=== PATIENT | female | born 1955 | race Caucasian/White ===

== ENCOUNTER 2016-12-30 21:38 | Emergency (ER) | payer OTHER ==
[~2016-12-30] VITALS: Ht 172.7 cm; Wt 84.8 kg
[~2016-12-30 21:38] MED LIST: ALPR0.5T96 PO; LEVO25TA58 PO
[2016-12-30 21:51] VITALS: BP_SYST 120
[2016-12-30] MEDS ORDERED: FAMOTIDINE PF 20 MG/2 ML VIAL IVP ONE (22:45)
[2016-12-30] MEDS ORDERED: DEXAMETHASONE SOD PHOSPHATE 10 MG/ML VIAL IVP ONE (22:45)
[2016-12-30] MEDS ORDERED: DIPHENHYDRAMINE INJ 50 MG/ML VIAL IVP ONE (22:45)
[2016-12-30] MEDS ORDERED: NACL 0.9% 1,000 ML IV ONE (22:45)
[2016-12-30] MEDS ORDERED: EPINEPHrine 1 MG/ML AMP IM ONE (22:45)
[2016-12-31 01:13] VITALS: BP_SYST 132
== END 2016-12-31 00:58 | disposition home or self-care (01) ==
LOC: SED 21:38
DX: L50.9 Urticaria, unspecified (principal); F17.210 Nicotine dependence, cigarettes, uncomplicated; R06.00 Dyspnea, unspecified; E07.9 Disorder of thyroid, unspecified; Z71.6 Tobacco abuse counseling; Z88.8 Allergy status to other drugs, medicaments and biological substances; Z79.899 Other long term (current) drug therapy
CPT/HCPCS: 96361; 96372; 96374; 96375; 99284; J0171; J1100; J1200; J3490; J7030

== ENCOUNTER 2017-02-07 09:55 | Outpatient (CLI) | payer OTHER | END 2017-02-07 21:02 | disposition home or self-care (01) | LOC: SCT 09:55 | PROVIDERS: ATTEND Otolaryngology | DX: J32.3 Chronic sphenoidal sinusitis (principal) | CPT/HCPCS: 70486-TC ==

== ENCOUNTER 2019-10-19 19:21 | Emergency (ER) | payer OTHER ==
[~2019-10-19] VITALS: Ht 172.7 cm; Wt 83.9 kg
[2019-10-19 19:21] VITALS: BP_SYST 166
[~2019-10-19 19:21] MED LIST changes: +ALPR0.5T PO; -ALPR0.5T96 PO; +LEVO25TA2 PO; -LEVO25TA58 PO
--- NOTE | 2019-10-19 19:26 | NUR ---
Placed in room 07 . Placed on laborer/grade check, blood pressure machine and pulse oximeter. To gown for exam. Side rails up.
--- NOTE | 2019-10-19 19:28 | NUR ---
Patient arrived to the ED, A&Ox3 with c/o of pain to her left chest radiating to her arm since noon. Pt. is afebrile and denies n/v and other symptoms. VS within normal limits and pt. shows no signs of distress or pain. VSS. Will continue to monitor pt. at this time.
[2019-10-19] MEDS ORDERED: LEVO137T2 PO (19:40)
[2019-10-19] MEDS ORDERED: ROSU20TA2 PO (19:41)
[2019-10-19] MEDS ORDERED: ASPI-1153 PO (19:42)
[2019-10-19] MEDS ORDERED: SODI126M NS (19:43)
[2019-10-19] MEDS ORDERED: UBID100C45 PO (19:43)
[2019-10-19] MEDS ORDERED: ASPIRIN 81 MG TAB.CHEW PO ONE (19:45)
--- NOTE | 2019-10-19 19:45 | NUR ---
22G Angiocath placed to the right lateral wrist.
[2019-10-19 20:08] LABS: BASOPHILS % (AUTO) 0.5 % (0.0-2.0); EOSINOPHILS # (AUTO) 0.1 K/uL (0.0-0.4); EOSINOPHILS % (AUTO) 2.6 % (0.0-4.0); HEMATOCRIT 42.2 % (36-48); HEMOGLOBIN 14.3 g/dL (12.0-16.0); LYMPHOCYTES # (AUTO) 1.6 K/uL (1.0-5.5); LYMPHOCYTES % (AUTO) 29.1 % (20.5-51.5); MEAN CORPUSCULAR HEMOGLOBIN 31 pg (27-31); MEAN CORPUSCULAR HGB CONC 34 % (32-36); MEAN CORPUSCULAR VOLUME 93 fL (79.0-98.0); MONOCYTES # (AUTO) 0.7 K/uL (0.0-1.0); MONOCYTES % (AUTO) 13.1 % (1.7-9.3); NEUTROPHILS # (AUTO) 2.9 K/uL (1.8-7.7); NEUTROPHILS % (AUTO) 54.7 % (40.0-70.0); PLATELET COUNT (AUTO) 219 K/uL (130-430); RED BLOOD CELL COUNT(AUTO) 4.56 MIL/uL (4.2-6.2); RED CELL DISTRIBUTION WIDTH 13.1 % (9.0-15.0); WHITE BLOOD COUNT (AUTO) 5.4 K/uL (4.8-10.8)
[2019-10-19] MEDS ORDERED: hydrALAZINE HCL 20 MG/ML VIAL IVP ONE (20:15)
--- NOTE | 2019-10-19 20:21 | NUR ---
Hydralazine HCL 10mg vial IVP NOT GIVEN due to improvment in BP. aware.
[2019-10-19 20:26] LABS: CALCIUM 9.7 mg/dL (8.4-11.0); CREATININE 0.86 mg/dL (0.55-1.30); POTASSIUM 4.4 mmol/L (3.5-5.1)
[2019-10-19 20:30] LABS: PROTHROMBIN TIME 9.8 SECS (9.5-12.5)
[2019-10-19 20:33] LABS: ALBUMIN 3.5 g/dL (3.4-4.8); TOTAL BILIRUBIN 0.3 mg/dL (0.0-1.0)
--- NOTE | 2019-10-19 21:30 | NUR ---
Pt. resting at this time. VSS. Patient denies pain and does not appear in distress at this time. Will continue to monitor.
[2019-10-19] MEDS ORDERED: ACETAMINOPHEN 500 MG TABLET PO ONE (22:00)
--- NOTE | 2019-10-19 22:42 | NUR ---
Pt. medicated with 1000mg Tylenol for 7/10 pain in her chest and genralized aches throughout upper body. VSS. Will continue to monitor and assess pain.
--- NOTE | 2019-10-19 23:40 | NUR ---
Patient resting comfortably in bed and denies pain at this time. VSS. Will continue to monitor.
[2019-10-19 23:58] LABS: BILIRUBIN,URINE NEGATIVE (NEGATIVE); BLOOD, URINE 1+ (NEGATIVE); CLARITY/URINE CLEAR (CLEAR); COLOR,URINE YELLOW (YELLOW); GLUCOSE,URINE NEGATIVE (NEGATIVE); KETONES,URINE NEGATIVE (NEGATIVE); LEUKOCYTE ESTERASE ,URINE NEGATIVE (NEGATIVE); NITRITE, URINE NEGATIVE (NEGATIVE); PH,URINE 5.5 (5.0-8.0); PROTEIN URINE NEGATIVE (NEGATIVE); UROBILINOGEN,URINE 0.2 (0.2-1.0)
[2019-10-20 00:35] VITALS: BP_SYST 138
[2019-10-20 00:35] LABS: BACTERIA,URINE FEW /HPF (None Seen); WBC,URINE 0-3 /HPF (0-3)
--- NOTE | 2019-10-20 00:35 | NUR ---
Patient given written and verbal discharge instructions and verbalizes understanding. ER MD discussed with patient the results and treatment provided. Patient in stable condition. ID arm band removed. IV catheter removed intact and dressing applied, no active bleeding. Rx of Soma given. Patient educated on pain management and to follow up with PMD. Pain Scale 2/10. Opportunity for questions provided and answered. Medication side effect fact sheet provided.
== END 2019-10-20 00:35 | disposition home or self-care (01) ==
LOC: SED 19:21
DX: R07.89 Other chest pain (principal); E03.9 Hypothyroidism, unspecified; Z79.82 Long term (current) use of aspirin; Z79.899 Other long term (current) drug therapy
CPT/HCPCS: 36415; 71045; 80053; 81000-TC; 82550-TC; 83880; 84484; 85025; 85379; 85610-TC; 93005; 99284; J0360

== ENCOUNTER 2019-10-27 18:25 | Inpatient (IN) | payer OTHER, SELFPAY ==
[~2019-10-27] VITALS: Ht 170.2 cm; Wt 83.5 kg
[2019-10-27] MEDS: AZITHROMYCIN 500 MG in NS 250 ML IV SCH (01:00)
[~2019-10-27 18:25] MED LIST changes: +ASPI-1153 PO; +LEVO137T2 PO; -LEVO25TA2 PO; +ROSU20TA2 PO; +SODI126M NS; +UBID100C45 PO
[2019-10-27 18:43] VITALS: BP_SYST 137
[2019-10-27] MEDS ORDERED: NACL 0.9% 1,000 ML IV ONE (18:47)
[2019-10-27] MEDS ORDERED: ASPIRIN 81 MG TAB.CHEW PO ONE (19:00)
[2019-10-27 19:21] LABS: BASOPHILS # (AUTO) 0.1 K/uL (0.0-0.2); BASOPHILS % (AUTO) 0.9 % (0.0-2.0); EOSINOPHILS # (AUTO) 0.2 K/uL (0.0-0.4); EOSINOPHILS % (AUTO) 2.7 % (0.0-4.0); HEMATOCRIT 41.2 % (36-48); HEMOGLOBIN 13.8 g/dL (12.0-16.0); LYMPHOCYTES # (AUTO) 1.6 K/uL (1.0-5.5); LYMPHOCYTES % (AUTO) 26.6 % (20.5-51.5); MEAN CORPUSCULAR HEMOGLOBIN 31 pg (27-31); MEAN CORPUSCULAR HGB CONC 34 % (32-36); MEAN CORPUSCULAR VOLUME 93 fL (79.0-98.0); MONOCYTES # (AUTO) 0.7 K/uL (0.0-1.0); MONOCYTES % (AUTO) 11.7 % (1.7-9.3); NEUTROPHILS # (AUTO) 3.5 K/uL (1.8-7.7); NEUTROPHILS % (AUTO) 58.1 % (40.0-70.0); PLATELET COUNT (AUTO) 228 K/uL (130-430); RED BLOOD CELL COUNT(AUTO) 4.42 MIL/uL (4.2-6.2); RED CELL DISTRIBUTION WIDTH 13.1 % (9.0-15.0)
[2019-10-27 19:39] LABS: ANION GAP 7 (5-15); CALCIUM 8.7 mg/dL (8.4-11.0); CHLORIDE 98 mmol/L (98-107); CREATININE 0.76 mg/dL (0.55-1.30); GLUCOSE 94 mg/dL (70-99); POTASSIUM 4.6 mmol/L (3.5-5.1); SODIUM SERUM 131 mmol/L (136-145); UREA NITROGEN, BLOOD 13 mg/dL (8-21)
[2019-10-27 19:42] LABS: GFR AFRICAN AMERICAN 98 mL/min (>90)
[2019-10-27 19:59] LABS: ALANINE AMINOTRANSFERASE 27 U/L (12-78); ASPARTATE AMINOTRANSFERASE 24 U/L (10-37); TOTAL BILIRUBIN 0.3 mg/dL (0.0-1.0)
[2019-10-27 20:00] LABS: ALBUMIN 3.6 g/dL (3.4-4.8)
[2019-10-27 20:42] LABS: PROTHROMBIN TIME 9.7 SECS (9.5-12.5)
[2019-10-27 21:03] LABS: BILIRUBIN,URINE NEGATIVE (NEGATIVE); CLARITY/URINE CLEAR (CLEAR); GLUCOSE,URINE NEGATIVE (NEGATIVE); KETONES,URINE NEGATIVE (NEGATIVE); LEUKOCYTE ESTERASE ,URINE NEGATIVE (NEGATIVE); NITRITE, URINE NEGATIVE (NEGATIVE); PH,URINE 6.5 (5.0-8.0); PROTEIN URINE NEGATIVE (NEGATIVE); UROBILINOGEN,URINE 0.2 (0.2-1.0)
[2019-10-27 21:06] LABS: BLOOD, URINE TRACE (NEGATIVE); COLOR,URINE STRAW (YELLOW)
[2019-10-27 21:48] LABS: RBC,URINE 0-3 /HPF (0-3); WBC,URINE 0-3 /HPF (0-3)
[2019-10-27 21:49] LABS: BACTERIA,URINE FEW /HPF (None Seen); MUCUS,URINE None Seen /LPF (None Seen)
[2019-10-27 21:57] LABS: LACTATE DEHYDROGENASE 149 U/L (81-234)
[2019-10-27 22:09] LABS: C-REACTIVE PROTEIN QUANT < 0.2 mg/dL (0-0.5)
[2019-10-27] MEDS ORDERED: CLOP75TA2 PO (23:09)
[2019-10-27] MEDS ORDERED: LORazepam 2 MG/ML VIAL IVP PRN (23:45)
[2019-10-28 00:03] VITALS: BP_SYST 150
[2019-10-28] MEDS ORDERED: AZITHROMYCIN 500 MG/VIAL (ZITHROMAX) IV ONE (00:35)
[2019-10-28] MEDS: ACETAMINOPHEN 325 MG TABLET PO PRN ×3 (01:45→20:56)
[2019-10-28] MEDS: DIPHENHYDRAMINE HCL 25 MG CAPSULE PO PRN ×3 (01:45→20:55)
[2019-10-28 07:26] LABS: BASOPHILS % (AUTO) 0.6 % (0.0-2.0); EOSINOPHILS # (AUTO) 0.2 K/uL (0.0-0.4); EOSINOPHILS % (AUTO) 3.1 % (0.0-4.0); HEMATOCRIT 39.8 % (36-48); HEMOGLOBIN 13.4 g/dL (12.0-16.0); LYMPHOCYTES # (AUTO) 1.8 K/uL (1.0-5.5); LYMPHOCYTES % (AUTO) 30.8 % (20.5-51.5); MEAN CORPUSCULAR HEMOGLOBIN 31 pg (27-31); MEAN CORPUSCULAR HGB CONC 34 % (32-36); MEAN CORPUSCULAR VOLUME 93 fL (79.0-98.0); MONOCYTES # (AUTO) 0.7 K/uL (0.0-1.0); MONOCYTES % (AUTO) 12.3 % (1.7-9.3); NEUTROPHILS # (AUTO) 3.1 K/uL (1.8-7.7); NEUTROPHILS % (AUTO) 53.2 % (40.0-70.0); PLATELET COUNT (AUTO) 207 K/uL (130-430); RED BLOOD CELL COUNT(AUTO) 4.28 MIL/uL (4.2-6.2); RED CELL DISTRIBUTION WIDTH 13.2 % (9.0-15.0); WHITE BLOOD COUNT (AUTO) 5.7 K/uL (4.8-10.8)
[2019-10-28] MEDS: ATORVASTATIN 20 MG TABLET PO SCH ×2 (07:59→08:17)
[2019-10-28] MEDS: ASPIRIN 81 MG TABLET(ECOTRIN) PO SCH (07:59)
[2019-10-28] MEDS: ASCORBIC ACID 500 MG TABLET PO SCH ×2 (07:59→20:55)
[2019-10-28] MEDS: ENOXAPARIN SODIUM 40 MG/0.4 ML SYRINGE SUBCUT SCH ×2 (08:01→08:17)
[2019-10-28 08:15] VITALS: BP_SYST 136
[2019-10-28] MEDS: LEVOTHYROXINE SODIUM 0.137 MG TABLET PO SCH (08:15)
[2019-10-28 08:41] LABS: CHLORIDE 101 mmol/L (98-107); POTASSIUM 3.7 mmol/L (3.5-5.1); SODIUM SERUM 134 mmol/L (136-145)
[2019-10-28 08:42] LABS: ANION GAP 5 (5-15); CALCIUM 8.3 mg/dL (8.4-11.0); CREATININE 0.73 mg/dL (0.55-1.30); GLUCOSE 102 mg/dL (70-99); UREA NITROGEN, BLOOD 11 mg/dL (8-21)
[2019-10-28 08:43] LABS: ASPARTATE AMINOTRANSFERASE 13 U/L (10-37); TOTAL BILIRUBIN 0.4 mg/dL (0.0-1.0)
[2019-10-28 08:44] LABS: ALANINE AMINOTRANSFERASE 23 U/L (12-78); ALBUMIN 3.3 g/dL (3.4-4.8)
[2019-10-28 08:45] LABS: C-REACTIVE PROTEIN QUANT 0.3 mg/dL (0-0.5); CHOLESTEROL 170 mg/dL (<200); HDL CHOLESTEROL 60 mg/dL (>55); TRIGLYCERIDES 101 mg/dL (30-150)
[2019-10-28 08:46] LABS: LDL CHOLESTEROL 88 mg/dL (<100)
[2019-10-28 12:30] VITALS: BP_SYST 150
[2019-10-28] MEDS: cefTRIAXone 1 GM in D5W 50 ML IV SCH (12:30)
[2019-10-28] MEDS ORDERED: ALPRAZolam 0.25 MG TABLET PO SCH ×2 (12:45)
[2019-10-28] MEDS ORDERED: CHOLECALCIFEROL (VITAMIN D3) 2,000 UNIT TABLET PO ONE (12:45)
[2019-10-28 16:30] VITALS: BP_SYST 154
[2019-10-28 20:00] VITALS: BP_SYST 158
[2019-10-28] MEDS ORDERED: ALPRAZolam 0.25 MG TABLET PO ONE (20:00)
[2019-10-28] MEDS: CLOPIDOGREL BISULFATE 75 MG TABLET PO SCH (20:55)
[2019-10-29] VITALS (7 sets, daily range): BP systolic 121–157
[2019-10-29] MEDS: AZITHROMYCIN 500 MG in NS 250 ML IV SCH ×2 (00:15→00:42)
[2019-10-29] MEDS: ACETAMINOPHEN 325 MG TABLET PO PRN ×2 (03:41→21:25)
[2019-10-29] MEDS: LEVOTHYROXINE SODIUM 0.137 MG TABLET PO SCH (06:27)
[2019-10-29 07:33] LABS: C-REACTIVE PROTEIN QUANT 0.5 mg/dL (0-0.5)
[2019-10-29] MEDS: ENOXAPARIN SODIUM 40 MG/0.4 ML SYRINGE SUBCUT SCH (09:00)
[2019-10-29] MEDS: ATORVASTATIN 20 MG TABLET PO SCH ×2 (09:00→09:45)
[2019-10-29] MEDS: ASPIRIN 81 MG TABLET(ECOTRIN) PO SCH (09:45)
[2019-10-29] MEDS: ASCORBIC ACID 500 MG TABLET PO SCH ×2 (09:45→21:25)
[2019-10-29] MEDS: CHOLECALCIFEROL (VITAMIN D3) 2,000 UNIT TABLET PO SCH (09:45)
[2019-10-29] MEDS: cefTRIAXone 1 GM in D5W 50 ML IV SCH (13:04)
[2019-10-29] MEDS ORDERED: APIX2.5T PO (18:09)
[2019-10-29] MEDS ORDERED: DOXY100C2 PO (18:09)
[2019-10-29] MEDS: DIPHENHYDRAMINE HCL 25 MG CAPSULE PO PRN (21:25)
[2019-10-29] MEDS: CLOPIDOGREL BISULFATE 75 MG TABLET PO SCH (21:25)
[2019-10-30] VITALS: BP_SYST 151
[2019-10-30] MEDS: ACETAMINOPHEN 325 MG TABLET PO PRN (04:00)
[2019-10-30] MEDS: LEVOTHYROXINE SODIUM 0.137 MG TABLET PO SCH (07:43)
[2019-10-30 08:10] VITALS: BP_SYST 141
[2019-10-30] MEDS: ATORVASTATIN 20 MG TABLET PO SCH (08:10)
[2019-10-30] MEDS: ENOXAPARIN SODIUM 40 MG/0.4 ML SYRINGE SUBCUT SCH (08:11)
[2019-10-30] MEDS: ASPIRIN 81 MG TABLET(ECOTRIN) PO SCH (08:27)
[2019-10-30] MEDS: ASCORBIC ACID 500 MG TABLET PO SCH (08:27)
[2019-10-30] MEDS: CHOLECALCIFEROL (VITAMIN D3) 2,000 UNIT TABLET PO SCH (08:28)
[2019-10-30 12:06] VITALS: BP_SYST 140
[2019-10-30] MEDS: cefTRIAXone 1 GM in D5W 50 ML IV SCH (12:28)
[2019-10-30 13:27] VITALS: BP_SYST 134
== END 2019-10-30 14:15 | disposition home or self-care (01) | DRG 206 ==
LOC: SED 18:25 → STU 22:49 → EEVIPCON 22:49 → STU 23:13 → OBSVTOIN 10-29 14:34
PROVIDERS: ADMIT Internal Medicine Hospice and Palliative Medicine; ATTEND Internal Medicine Hospice and Palliative Medicine
DX: M94.0 Chondrocostal junction syndrome [Tietze] (principal); Z96.641 Presence of right artificial hip joint; E03.9 Hypothyroidism, unspecified; F17.210 Nicotine dependence, cigarettes, uncomplicated; E78.5 Hyperlipidemia, unspecified; G62.9 Polyneuropathy, unspecified; Z85.3 Personal history of malignant neoplasm of breast; Z86.718 Personal history of other venous thrombosis and embolism; Z90.11 Acquired absence of right breast and nipple; Z03.818 Encounter for observation for suspected exposure to other biological agents ruled out; Z88.5 Allergy status to narcotic agent; Z88.0 Allergy status to penicillin; Z88.8 Allergy status to other drugs, medicaments and biological substances
CPT/HCPCS: 36415; 71045; 72100-TC; 80053; 80061; 81000-TC; 82550-TC; 82728; 83605; 83615-TC; 83880; 84484; 85025; 85379; 85384-TC; 85610-TC; 85730-TC; 86140; 86886; 86900; 86901; 87040-TC; 87086; 93005; 93306; 93970; 96360; 99291; G0378; J0456; J0696; J1650; J7050; J7060; Q0163; U0003-CS

== ENCOUNTER 2021-01-16 17:32 | Emergency (ER) | payer OTHER, SELFPAY ==
[~2021-01-16] VITALS: Ht 172.7 cm; Wt 83.9 kg
[~2021-01-16 17:32] MED LIST changes: +APIX2.5T PO; -ASPI-1153 PO; +ASPI-1393 PO; +CLOP75TA2 PO; +DOXY100C5 PO
--- NOTE | 2021-01-16 19:04 | NUR ---
Patient to ER bed H1 to gown for evaluation. Side rails up.
--- NOTE | 2021-01-16 19:30 | NUR ---
Pt stated " too many COVID pts in here !!" "Get me outta here!! " then pt Left without being seen
== END 2021-01-16 19:30 | disposition left against medical advice (07) ==
LOC: SED 17:32
DX: M54.5 Low back pain (principal); Z53.21 Procedure and treatment not carried out due to patient leaving prior to being seen by health care provider

== ENCOUNTER 2021-12-26 13:29 | Emergency (ER) | payer OTHER ==
[~2021-12-26] VITALS: Ht 170.2 cm; Wt 88.5 kg
[2021-12-26 13:36] VITALS: BP_SYST 149
== END 2021-12-26 14:05 | disposition home or self-care (01) ==
LOC: SED 13:29
DX: H43.392 Other vitreous opacities, left eye (principal); H53.19 Other subjective visual disturbances; Z88.0 Allergy status to penicillin; Z88.5 Allergy status to narcotic agent; Z88.6 Allergy status to analgesic agent; Z79.899 Other long term (current) drug therapy
CPT/HCPCS: 99284

== ENCOUNTER 2022-03-30 10:53 | Inpatient (IN) | payer OTHER ==
[~2022-03-30] VITALS: Ht 172.7 cm; Wt 87.5 kg
[2022-03-30 11:06] VITALS: BP_SYST 147
[2022-03-30] MEDS ORDERED: KETOROLAC TROMETHAMINE 30 MG VIAL IM ONE (12:00)
[2022-03-30] MEDS ORDERED: ACETAMINOPHEN 500 MG TABLET PO ONE (12:00)
[2022-03-30 12:12] LABS: BILIRUBIN,URINE NEGATIVE (NEGATIVE); BLOOD, URINE 2+ (NEGATIVE); COLOR,URINE YELLOW (YELLOW); GLUCOSE,URINE NEGATIVE (NEGATIVE); KETONES,URINE TRACE (NEGATIVE); LEUKOCYTE ESTERASE ,URINE NEGATIVE (NEGATIVE); NITRITE, URINE NEGATIVE (NEGATIVE); PH,URINE 6.5 (5.0-8.0); PROTEIN URINE NEGATIVE (NEGATIVE); UROBILINOGEN,URINE 0.2 (0.2-1.0)
[2022-03-30 12:16] LABS: CLARITY/URINE SLIGHTLY HAZY (CLEAR)
[2022-03-30 12:18] LABS: BASOPHILS % (AUTO) 0.4 % (0.0-2.0); EOSINOPHILS # (AUTO) 0.1 K/uL (0.0-0.4); EOSINOPHILS % (AUTO) 1.1 % (0.0-4.0); HEMATOCRIT 41.2 % (36-48); HEMOGLOBIN 14.3 g/dL (12.0-16.0); LYMPHOCYTES # (AUTO) 1.3 K/uL (1.0-5.5); LYMPHOCYTES % (AUTO) 17.9 % (20.5-51.5); MEAN CORPUSCULAR HEMOGLOBIN 32 pg (27-31); MEAN CORPUSCULAR HGB CONC 35 % (32-36); MEAN CORPUSCULAR VOLUME 91 fL (79.0-98.0); MONOCYTES # (AUTO) 0.7 K/uL (0.0-1.0); MONOCYTES % (AUTO) 9.1 % (1.7-9.3); NEUTROPHILS # (AUTO) 5.2 K/uL (1.8-7.7); NEUTROPHILS % (AUTO) 71.5 % (40.0-70.0); PLATELET COUNT (AUTO) 227 K/uL (130-430); RED BLOOD CELL COUNT(AUTO) 4.51 MIL/uL (4.2-6.2); RED CELL DISTRIBUTION WIDTH 13.2 % (9.0-15.0); WHITE BLOOD COUNT (AUTO) 7.3 K/uL (4.8-10.8)
[2022-03-30 12:23] LABS: BACTERIA,URINE FEW /HPF (None Seen); WBC,URINE 0-3 /HPF (0-3)
[2022-03-30 12:24] LABS: CALCIUM 9.4 mg/dL (8.4-11.0); CREATININE 0.8 mg/dL (0.55-1.30)
[2022-03-30 12:29] LABS: ALBUMIN 3.8 g/dL (3.4-4.8); TOTAL BILIRUBIN 0.5 mg/dL (0.0-1.0)
[2022-03-30] MEDS ORDERED: ONDANSETRON HCL 4 MG/2 ML VIAL IVP ONE (14:45)
[2022-03-30] MEDS ORDERED: HYDROmorphone 1 MG/ML INJ. CARTRIDGE IVP ONE (14:45)
[2022-03-30] MEDS ORDERED: cefTRIAXone 1 GM IVPB PREMIX 50 ML IV ONE (15:45)
[2022-03-30] MEDS: NACL 0.9% 1,000 ML IV SCH ×2 (16:15→23:49)
[2022-03-30] MEDS ORDERED: ASPI-1393 PO (16:39)
[2022-03-30] MEDS ORDERED: ALPR0.5T PO (16:39)
[2022-03-30] MEDS ORDERED: LEVO137T32 PO (16:39)
[2022-03-30] MEDS ORDERED: CLOP75TA32 PO (16:39)
[2022-03-30 18:32] VITALS: BP_SYST 108
[2022-03-30 19:40] VITALS: BP_SYST 129
[2022-03-30] MEDS ORDERED: NALOXONE HCL 0.4 MG/ML AMP (NARCAN) IVP PRN (23:15)
[2022-03-30 23:28] VITALS: BP_SYST 127
[2022-03-30] MEDS: HYDROmorphone 1 MG/ML INJ. CARTRIDGE IVP PRN (23:48)
[2022-03-31] MEDS ORDERED: ALPRAZolam 0.25 MG TABLET PO PRN (05:00)
[2022-03-31] MEDS ORDERED: SODIUM CHLORIDE 0.65% NASAL SPRAY NS PRN (05:00)
[2022-03-31] MEDS: NACL 0.9% 1,000 ML IV SCH ×2 (07:15→15:40)
[2022-03-31 08:00] VITALS: BP_SYST 154
[2022-03-31] MEDS ORDERED: UBIDECARENONE 100 MG PO SCH (09:00)
[2022-03-31] MEDS: DOXYCYCLINE HYCLATE 100 MG CAPSULE PO SCH ×2 (09:15→21:20)
[2022-03-31] MEDS: ASPIRIN 81 MG TABLET(ECOTRIN) PO SCH (09:15)
[2022-03-31] MEDS: TAMSULOSIN HCL 0.4 MG CAP PO SCH (09:15)
[2022-03-31] MEDS: APIXABAN 2.5 MG TABLET PO SCH ×3 (09:16→21:21)
[2022-03-31] MEDS: LEVOTHYROXINE SODIUM 0.137 MG TABLET PO SCH (09:19)
[2022-03-31 09:42] LABS: BASOPHILS % (AUTO) 0.5 % (0.0-2.0); EOSINOPHILS # (AUTO) 0.1 K/uL (0.0-0.4); EOSINOPHILS % (AUTO) 2.7 % (0.0-4.0); HEMATOCRIT 39.8 % (36-48); HEMOGLOBIN 13.6 g/dL (12.0-16.0); LYMPHOCYTES # (AUTO) 1.4 K/uL (1.0-5.5); LYMPHOCYTES % (AUTO) 30.6 % (20.5-51.5); MEAN CORPUSCULAR HEMOGLOBIN 31 pg (27-31); MEAN CORPUSCULAR HGB CONC 34 % (32-36); MEAN CORPUSCULAR VOLUME 92 fL (79.0-98.0); MONOCYTES # (AUTO) 0.4 K/uL (0.0-1.0); MONOCYTES % (AUTO) 9.4 % (1.7-9.3); NEUTROPHILS # (AUTO) 2.6 K/uL (1.8-7.7); NEUTROPHILS % (AUTO) 56.8 % (40.0-70.0); PLATELET COUNT (AUTO) 234 K/uL (130-430); RED BLOOD CELL COUNT(AUTO) 4.34 MIL/uL (4.2-6.2); RED CELL DISTRIBUTION WIDTH 13.1 % (9.0-15.0)
[2022-03-31 09:47] LABS: CALCIUM 8.4 mg/dL (8.4-11.0); CREATININE 0.64 mg/dL (0.55-1.30)
[2022-03-31 10:02] LABS: WHITE BLOOD COUNT (AUTO) 4.6 K/uL (4.8-10.8)
[2022-03-31] MEDS: HYDROmorphone 1 MG/ML INJ. CARTRIDGE IVP PRN (10:13)
[2022-03-31 11:45] VITALS: BP_SYST 128
[2022-03-31 15:27] VITALS: BP_SYST 102
[2022-03-31] MEDS ORDERED: cefTRIAXone 1 GM IVPB PREMIX 50 ML IV SCH (17:00)
[2022-03-31 19:35] VITALS: BP_SYST 112
[2022-03-31] MEDS ORDERED: ATORVASTATIN 20 MG TABLET PO SCH (21:00)
[2022-03-31] MEDS ORDERED: CLOPIDOGREL BISULFATE 75 MG TABLET PO SCH (21:00)
[2022-03-31] MEDS ORDERED: ACETAMINOPHEN 325 MG TABLET PO PRN (21:15)
[2022-04-01 00:10] VITALS: BP_SYST 160
[2022-04-01] MEDS: HYDROmorphone 1 MG/ML INJ. CARTRIDGE IVP PRN ×2 (02:16→15:20)
[2022-04-01] MEDS: NACL 0.9% 1,000 ML IV SCH ×3 (02:17→15:19)
[2022-04-01 07:18] LABS: CALCIUM 8.7 mg/dL (8.4-11.0); CREATININE 0.65 mg/dL (0.55-1.30)
[2022-04-01 07:40] LABS: BASOPHILS % (AUTO) 0.6 % (0.0-2.0); EOSINOPHILS # (AUTO) 0.1 K/uL (0.0-0.4); HEMATOCRIT 38.5 % (36-48); HEMOGLOBIN 13.4 g/dL (12.0-16.0); LYMPHOCYTES # (AUTO) 1.5 K/uL (1.0-5.5); LYMPHOCYTES % (AUTO) 33.9 % (20.5-51.5); MEAN CORPUSCULAR HEMOGLOBIN 32 pg (27-31); MEAN CORPUSCULAR HGB CONC 35 % (32-36); MEAN CORPUSCULAR VOLUME 91 fL (79.0-98.0); MONOCYTES # (AUTO) 0.5 K/uL (0.0-1.0); MONOCYTES % (AUTO) 12.4 % (1.7-9.3); NEUTROPHILS # (AUTO) 2.2 K/uL (1.8-7.7); NEUTROPHILS % (AUTO) 50.1 % (40.0-70.0); PLATELET COUNT (AUTO) 203 K/uL (130-430); RED BLOOD CELL COUNT(AUTO) 4.21 MIL/uL (4.2-6.2); RED CELL DISTRIBUTION WIDTH 12.7 % (9.0-15.0); WHITE BLOOD COUNT (AUTO) 4.4 K/uL (4.8-10.8)
[2022-04-01 08:00] VITALS: BP_SYST 155
[2022-04-01] MEDS: LEVOTHYROXINE SODIUM 0.137 MG TABLET PO SCH (08:53)
[2022-04-01] MEDS: ASPIRIN 81 MG TABLET(ECOTRIN) PO SCH (08:54)
[2022-04-01] MEDS: TAMSULOSIN HCL 0.4 MG CAP PO SCH (08:54)
[2022-04-01] MEDS: DOXYCYCLINE HYCLATE 100 MG CAPSULE PO SCH (08:54)
[2022-04-01] MEDS: APIXABAN 2.5 MG TABLET PO SCH (08:55)
[2022-04-01 12:00] VITALS: BP_SYST 127
[2022-04-01] MEDS ORDERED: TAMS0.4C96 PO (14:28)
[2022-04-01 16:13] VITALS: BP_SYST 134
== END 2022-04-01 17:25 | disposition home or self-care (01) | DRG 694 ==
LOC: SED 10:53 → SMU 15:11
PROVIDERS: ADMIT Internal Medicine; ATTEND Internal Medicine
DX: N13.2 Hydronephrosis with renal and ureteral calculous obstruction (principal); E87.1 Hypo-osmolality and hyponatremia; E03.9 Hypothyroidism, unspecified; G89.29 Other chronic pain; E78.5 Hyperlipidemia, unspecified; F41.9 Anxiety disorder, unspecified; R31.9 Hematuria, unspecified; D17.1 Benign lipomatous neoplasm of skin and subcutaneous tissue of trunk; Z20.822 Contact with and (suspected) exposure to COVID-19; M54.9 Dorsalgia, unspecified; Z88.6 Allergy status to analgesic agent; Z88.5 Allergy status to narcotic agent; Z88.0 Allergy status to penicillin; Z88.8 Allergy status to other drugs, medicaments and biological substances; Z79.899 Other long term (current) drug therapy; Z86.718 Personal history of other venous thrombosis and embolism; Z79.01 Long term (current) use of anticoagulants; Z85.3 Personal history of malignant neoplasm of breast; Z79.82 Long term (current) use of aspirin
CPT/HCPCS: 36415; 74018; 76376; 80048; 80053; 81000; 83690; 85025; J0696; J1170; J1885; J2405; J7030